=== PATIENT | male | born 1985 | race Hispanic/Latino ===

== ENCOUNTER 2018-09-07 20:49 | Emergency (ER) | payer MEDICAID ==
[2018-09-07] MEDS ORDERED: Sodium Bicarbonate (8.4%) 50 mEq Vial ONE (21:03)
[2018-09-07 21:04] VITALS: BP 0/0; PULSE 0; RESP 0; TEMP 94.6; O2SAT 94
[2018-09-07 21:19] LABS: ARTERIAL BLOOD GAS O2 SAT 7.9 % (95-98); ARTERIAL BLOOD GAS PCO2 > 150 mm/Hg (35-45); ARTERIAL BLOOD GAS PH < 6.80 (7.35-7.45)
--- NOTE | 2018-09-07 21:31 | C.PDOC ---
History Of Present Illness 42 year old is brought by ALS ambulance after being found unresponsive face down on a snow bank behind a garage with a needle in his hands by bystanders. * 20:07 - BLS called * 20:12 - BLS started CPR, patient apneic, unresponsive with dialated pupils, ALS with no shockable rhythm found, Narcan given no response to it * Patient intubated, transported to the ED * Patient arrived 20:[address] CPR started, head cold and modeled, with fixed dilated pupils. On patient found some siddiqi, no ID and a vile with unknown substance. Chief Complaint (Nursing): Cardiac Arrest History Per: EMS Reason For Code Blue: Unresponsive Circumstances: Brought To ED By EMS Arrest Witnessed By: By-stander CPR Initiated Prior To MD Arrival?: Yes Down-Time Before ACLS: Unknown Treatment Initiated Prior To MD Arrival: Yes: CPR, Intubation - Initial Findings Mentation: Unresponsive Respirations: None (Assisted) Pulse: None Rhythm: Asystole Past Medical History Reviewed: Historical Data, Nursing Documentation, Vital Signs Vital Signs: Last Vital Signs Temp 94.6 F L 09/07/18 20:52 Pulse 0 L 09/07/18 20:52 Resp 0 L 09/07/18 20:52 BP 0/0 L 09/07/18 20:52 Pulse Ox 94 L 09/07/18 20:52 - Medical History PMH: No Chronic Diseases Surgical History: No Surg Hx Family History: States: Unknown Family Hx - Social History Hx Alcohol Use: No (unknown) Hx Substance Use: Yes Review Of Systems Review Of Systems: ROS cannot be obtained secondary to pt's inabilty to answer questions. Physical Exam - Physical Exam Appears: Other (unresponsive) Skin: No Warm (cold), Dry Head: Normacephalic, Other (cold to touch) Eye(s): bilateral: Other (pupils fixed and dialated) Neck: Supple Chest: Symmetrical Cardiovascular: Other (asystole) Respiratory: Other (intubated 7.5 ET tube with 23 cm at the lip. Good bilateral air entry) Gastrointestinal/Abdominal: Soft, No Distention Extremity: Bilateral: Atraumatic Neurological/Psych: Other (unresponsive) Gait: Unable To Assess ED Course And Treatment - Laboratory Results Result Diagrams: 09/07/18 21:23 09/07/18 21:21 Lab Results: Puncture Site Rfem 09/07/18 21:10 pCO2 > 150 mm/Hg (35-45) H* 09/07/18 21:10 ABG pH < 6.80 (7.35-7.45) L* 09/07/18 21:10 ABG O2 Saturation 7.9 % (95-98) L 09/07/18 21:10 Ruel Test Na 09/07/18 21:10 ABG Potassium 6.3 mmol/L (3.6-5.2) H* 09/07/18 21:10 Sodium 160.0 mmol/l (132-148) H* 09/07/18 21:10 Chloride 123.0 mmol/L (98-107) H 09/07/18 21:10 FiO2 100.0 % 09/07/18 21:10 Crit Value Called To Dr carmona 09/07/18 21:10 Crit Value Called By Henry lion 09/07/18 21:10 Crit Value Read Back Y 09/07/18 21:10 Blood Gas Notified Time 211809/07/18 21:10 O2 Sat by Pulse Oximetry: 94 (intubated) Medical Decision Making Medical Decision Making: Patient's rectal temperature was 94.7, warmed the patient after which ACLS protocols initiated Multiple rhythm checks with persistent asystole. ABG x 2 from right femoral showed uncalculable numbers with severe acidosis on multiple rechecks. After ACLS protocols for > 1 hour and no appreciable improvement and catastrophic ABG/VBG results, recussitative efforts are considered futile. Patient's time of was 21:20. There is no identification of the patient, there is no way to do a certificate without patient's information. Nursing contacted [facility], medical transcription radiology will come and retrieve body without certificate due to lack of identification of the patient. 09/09/18: 4PM Called to OR offices, pt is still not identified. We will call back in 2-3 days to recheck. Disposition - Disposition Disposition: WITH WITHOUT AUTOPSY Disposition Time: 23:00 Condition: Forms: [employer] ([place]) - Clinical Impression Clinical Impression: Cardiac arrest, Overdose of opiate or related narcotic Critical Care Time - Critical Care Note Total Time (in mins): 30 Documented critical care: time excludes all time spent performing seperately billable procedures. - Scribe Statement The provider has reviewed the documentation as recorded by the Scribe Narciso More All medical record entries made by the Scribe were at my direction and personally dictated by me. I have reviewed the chart and agree that the record accurately reflects my personal performance of the history, physical exam, medical decision making, and the department course for this patient. I have also personally directed, reviewed, and agree with the discharge instructions and disposition.
[2018-09-07 21:38] LABS: BASO # 0.1 K/uL (0.0-0.2); EOS # 0.1 K/uL (0.0-0.7); EOS % 0.6 % (0.0-4.0)
[2018-09-07 21:49] LABS: INR 1.8; PROTHROMBIN TIME 19.2 SECONDS (9.7-12.2)
[2018-09-07 21:51] LABS: B-TYPE NATRIURETIC PEPTIDE 27.1 pg/mL (0-450); CK-MB 5.27 ng/mL (0.0-3.38)
[2018-09-07 21:53] LABS: ALB/GLOB RATIO 1.4 (1.0-2.1); ALBUMIN 2.7 g/dL (3.5-5.0); ALT/SGPT 896 U/L (21-72); BLOOD UREA NITROGEN 12 mg/dL (9-20); CALCIUM 12.3 mg/dl (8.6-10.4); GFR NON-AFRICAN AMERICAN 52
[2018-09-07 21:55] LABS: BASO % 0.7 % (0.0-2.0); LYMPH # 4.9 K/uL (1.0-4.3); MEAN CORPUSCULAR HEMOGLOBIN 31.4 pg (27.0-31.0); MEAN CORPUSCULAR HGB CONC 29.2 g/dL (33.0-37.0); MEAN PLATELET VOLUME 8.2 fL (7.2-11.7); MONO # 0.7 K/uL (0.0-0.8); MONO % 4.4 % (0.0-10.0); NEUT # 9.2 K/uL (1.8-7.0); NEUT % 61.3 % (50.0-75.0); NRBC % 0.6 % (0.0-2.0); RBC 4.39 Mil/uL (4.40-5.90); RED CELL DISTRIBUTION WIDTH 16.5 % (11.5-14.5)
[2018-09-07 22:00] LABS: HEMOGLOBIN 13.8 g/dL (12.0-18.0); MEAN CELL VOLUME 107.7 fL (80.0-94.0)
[2018-09-07 22:03] LABS: AST/SGOT 1187 U/L (17-59)
[2018-09-09] MEDS ORDERED: Calcium Gluconate 4.65 mEq/10 ml Inj IV ONE (16:30)
== END 2018-09-07 22:52 ==
LOC: EDBD → C.ER 20:49
DX: I46.9 Cardiac arrest, cause unspecified (principal); T40.0X1A Poisoning by opium, accidental (unintentional), initial encounter; Y92.89 Other specified places as the place of occurrence of the external cause
CPT/HCPCS: 80053; 82803; 82948; 83880; 84484; 85025; 85610; 85730; 99285; J0171